=== PATIENT | male | born 1945 | race Caucasian/White ===

== ENCOUNTER → 2020-04-06 12:12 | Outpatient (BNVA) | payer MEDICARE, SELFPAY | PROVIDERS: Family Provider Family Medicine; Visit Provider Podiatrist Foot & Ankle Surgery | DX: M20.42 Other hammer toe(s) (acquired), left foot (principal) | CPT/HCPCS: 73630 ==

== ENCOUNTER 2020-04-06 15:51 | Outpatient (CLI) | payer MEDICARE, SELFPAY | END 2020-04-06 15:52 | disposition home or self-care (01) | LOC: SPT 15:52 | PROVIDERS: Family Provider Family Medicine; Visit Provider Podiatrist Foot & Ankle Surgery | DX: Z46.89 Encounter for fitting and adjustment of other specified devices (principal); L97.522 Non-pressure chronic ulcer of other part of left foot with fat layer exposed; M20.42 Other hammer toe(s) (acquired), left foot | CPT/HCPCS: 73630; 97760; L4361 ==

== ENCOUNTER → 2020-04-14 08:30 | Outpatient (BNVA) | payer MEDICARE, SELFPAY | PROVIDERS: Family Provider Family Medicine; Visit Provider Podiatrist Foot & Ankle Surgery | DX: L97.522 Non-pressure chronic ulcer of other part of left foot with fat layer exposed (principal); M86.9 Osteomyelitis, unspecified; M20.42 Other hammer toe(s) (acquired), left foot | CPT/HCPCS: 87070; 87075; 87205 ==

== ENCOUNTER → 2020-04-19 15:23 | Outpatient (BNVA) | payer MEDICARE, SELFPAY | PROVIDERS: Family Provider Family Medicine; Visit Provider Nurse Practitioner | DX: K29.70 Gastritis, unspecified, without bleeding (principal) | CPT/HCPCS: 81000 ==

== ENCOUNTER → 2020-04-30 09:32 | Outpatient (BNVA) | payer MEDICARE, SELFPAY | PROVIDERS: Family Provider Family Medicine; Visit Provider Podiatrist Foot & Ankle Surgery | DX: M86.9 Osteomyelitis, unspecified (principal); L97.522 Non-pressure chronic ulcer of other part of left foot with fat layer exposed; M20.42 Other hammer toe(s) (acquired), left foot | CPT/HCPCS: 73630 ==

== ENCOUNTER → 2020-06-23 14:28 | Outpatient (BNVA) | payer MEDICARE, SELFPAY | PROVIDERS: Family Provider Family Medicine; Visit Provider Podiatrist Foot & Ankle Surgery | DX: L97.522 Non-pressure chronic ulcer of other part of left foot with fat layer exposed (principal); M86.9 Osteomyelitis, unspecified | CPT/HCPCS: 73630; 87070; 87205 ==

== ENCOUNTER 2020-06-25 05:54 | Day surgery (SDC) | payer MEDICARE, SELFPAY ==
[2020-06-24 08:18] VITALS: BMI 22.4
[2020-06-25 06:07] VITALS: BP 123/84; PULSE 76; RESP 18; TEMP 36.2; O2SAT 97
[2020-06-25] MEDS: sodium chloride 0.9% 1,000 ML 30 ML IV (06:22)
--- NOTE | 2020-06-25 06:42 | ECG_ITS ---
[facility] Test Date: 2020-06-25 Pat Name: Jose Beal Department: Room: Gender: Male [employer]: : 1945 Requested By: Yara Maher Order Number: [id number] Pool MD: Cathie Steve M.D. Measurements Intervals [place] Rate: 63 P: 62 SC: 147 QRS: 45 QRSD: 101 T: 44 QT: 441 QTc: 453 Interpretive Statements SINUS RHYTHM No previous ECG available for comparison Electronically Signed On 06-25-2020 23:06:36 CDT by Cathie Steve M.D. [id number]
--- NOTE | 2020-06-25 06:45 | W.PM.OPSUD ---
Surgery/Procedure H&P Update DATE OF PROCEDURE: June 25, 2020 DATE H&P PERFORMED: 06/23/20 H&P UPDATE INFORMATION: I have reviewed H&P completed within last 30 days, I have examined patient prior to procedure, No changes to prior documentation and H&P is in [facility] EMR on date indicated PREOP DIAGNOSIS: Osteomyelitis left second toe distal phalanx PLANNED PROCEDURE: Operation Date: 06/25/20 07:00 Proposed Procedures p Amputation Toe/s left second toe 53879 M86.9(Left) - Dalton Gordon DPM
--- NOTE | 2020-06-25 06:47 | ANES.PREANE2 ---
Pre-Anesthetic Assessment Pre-Anesthetic Assessment: Height/Weight: Height 1.93 m Weight 83.461 kg Temp Pulse Resp BP Pulse Ox 97.2 F L 76 18 123/84 97 06/25/20 06:07 06/25/20 06:07 06/25/20 06:07 06/25/20 06:07 06/25/20 06:07 Preop Diagnosis: Osteomyelitis left second toe distal phalanx Proposed Procedure: Operation Date: 06/25/20 07:00 Proposed Procedures p Amputation Toe/s left second toe 90663 M86.9(Left) - Dalton Gordon DPM Familial anesthetic complications: NOne Last intake: Intake Last Liquid Date 06/24/20 Last Liquid Time 20:00 Last Solid Date 06/24/20 Last Solid Time 16:00 Social: Social History: No alcohol and No tobacco Exam: Pre-Anes Outpt Exam: alert, oriented x 3, clear to auscultation bilaterally and regular rate & rhythm Airway: Cervical ROM: WNL MP: 1 Additional comments: poor dentition Anesthetic Plan: ASA status: 1 Anesthesia: MAC Risk of > 500 ml blood loss (7ml/kg in children): No Meds/Allergies Current Medications: Current Medications Generic Name Dose Route Start Last Admin Trade Name Freq PRN Reason Stop Dose Admin Sodium Chloride 1,000 mls @ 30 ml s/hr 06/25/20 06:00 06/25/20 06:22 Sodium Chloride 0.9% IV 06/26/20 05:59 30 mls/hr .Q24H BRE Administration PFSH Anesthesia PFSH: Surgical History History of appendectomy History of cholecystectomy Social History Smoking and tobacco status: former smoker Alcohol intake: never Data Anesthesia Cardiac Studies: No Data to Display
--- NOTE | 2020-06-25 07:36 | XR_ITS ---
WS: [id number] LEFT FOOT: 3 VIEW(S) TECHNIQUE: AP, oblique and lateral. HISTORY: post op COMPARISON: 06/23/2020 No acute fracture or dislocation. Interval removal of the second toe. Postoperative changes in the soft tissues. There is very slight l oss of the normal cortex over the second metatarsal head as compared to the adjacent toes. No definit e osteomyelitis radiographically. Hammertoe deformities. No foreign bodies. XR/XR foot LT min 3V* [id number] IMPRESSION: 1. Post operative resection of the second toe. 2. Normal postoperative soft tissue changes. 3. Early changes of osteomyelitis involving the second metatarsal head are not excluded.
--- NOTE | 2020-06-25 07:36 | PM.OP ---
Operative Report Date of procedure: June 25, 2020 Pre-op Diagnosis: Osteomyelitis left second toe distal phalanx Post-op diagnosis: same Post-op Findings: Devitalized soft tissue and bone of the distal phalanx left second toe Procedure Done: Left second toe amputation through metatarsal phalangeal joint CPT code 83108 Implants: 3-0 Vicryl, 4-0 nylon Specimens removed/disposition: Left distal toe including distal phalanx sent to microbiology for Gram stain and culture. Remainder of left second toe sent to pathology for permanent Surgeon: Dalton Gordon D.P.M. Track Laying Equipment Operator: Michi Anesthesia: MAC Estimated blood loss: 5 mL Tourniquet time: 16 minutes IV fluids: None Urine output: None Complications: None Findings: Devitalized soft tissue and bone consistent with osteomyelitis distal phalanx left second toe Condition: stable Disposition: PACU Brief History: Patient is a pleasant 75-year-old male with idiopathic neuropathy and hammertoe deformity has history of multiple ulcerations with infections requiring antibiotics and wound care at his left second toe. He had abrupt onset of redness, swelling and drainage at his left second toe, on x-ray there is evidence of periosteal reaction and destructive changes at the distal tuft of the distal phalanx left second toe consistent with osteomyelitis. Recommended left second toe amputation risks include pain, bleeding, numbness, infection, ascending infection into the foot and leg, transfer pressure, he does have a hallux valgus that will likely be exacerbated with the second toe removed. Need for further antibiotics and surgical intervention. Patient is agreeable wishes to proceed. Procedure: Under mild sedation the patient was brought to the operating room and placed on operating table in supine position. A timeout was performed. Anesthesia was then administered by the anesthesia service. Local anesthesia was injected by myself 10 cc of 0.5% Marcaine plain and a left second ray block. Well-padded pneumatic tourniquet was applied to the left ankle. The left lower extremity was then scrubbed, prepped and draped utilizing normal aseptic technique. Left foot was elevated and the tourniquet was inflated to 250 mmHg. Attention was directed to the left second metatarsal phalangeal joint where a vertical fishmouth incision was carried out full-thickness with a #15 blade down to bone. The left second toe was disarticulated sharply through the metatarsal phalangeal joint and passed from the operative field. Distal phalanx and distal toe sent to microbiology for Gram stain and culture. Remaining second toe sent to pathology for permanent. Incision site was flushed with copious amounts of sterile saline solution. The second metatarsal head was viable had normal bone density and color. No purulent drainage encountered at this level.. Have healthy margins intraoperatively at this joint. All bleeders were ligated and cauterized as necessary. Extensor and flexor tendons transected at the most proximal margin. Incision once once again irrigated with saline solution. Deep tissues reapproximated utilizing 3-0 Vicryl. Skin reapproximated utilizing 4-0 nylon. Incision site was dressed with Adaptic, sterile 4 x 4's, Kerlix and Ajit wrap followed by postop shoe. Tourniquet was deflated and a prompt hyperemic response was noted to the remaining distal digits of the left foot. Patient tolerated the procedure well and was transferred to the PACU with vital signs stable and vascular status intact. Following a period of postoperative monitoring he will be discharged home is to rest and elevate his left foot may heel touch for transfers with a postop shoe. Continue with clindamycin and ciprofloxacin prescribed previously until the entire course is completed. Follow-up in clinic Monday next 07/01/2020 11 AM. He will contact Dr. Gordon with any postoperative questions or concerns.
[2020-06-25 07:37] VITALS: BP 94/55; PULSE 61; RESP 16; TEMP 36.1; O2SAT 94
[2020-06-25 07:52] VITALS: BP 100/59; PULSE 58; RESP 16; TEMP 36.6; O2SAT 96
--- NOTE | 2020-06-25 12:28 | ANE.PACU2 ---
Inpatient post-anesthesia follow up: Airway intact: Yes Vital signs: Temperature 98 F Pulse Rate 58 Respiratory Rate 16 Blood Pressure 100/59 Pulse Oximetry 96 Oxygen Delivery Me thod Room Air Oxygen Flow Rate Fraction of Inspir ed Oxygen Hydration adequate: Yes Nausea and vomiting: No Pain level: 1 Mental status: Baseline
== END 2020-06-25 08:35 | disposition home or self-care (01) ==
PROVIDERS: PCP Internal Medicine; Visit Provider Podiatrist Foot & Ankle Surgery
PROC: (CPT 28820; principal; 2020-06-25 07:00)
DX: M86.9 Osteomyelitis, unspecified (principal); M20.42 Other hammer toe(s) (acquired), left foot; G60.9 Hereditary and idiopathic neuropathy, unspecified; Z87.891 Personal history of nicotine dependence
CPT/HCPCS: 28820; 12345; 73630; 87070; 87077; 87106; 87176; 87186; 87205; 88305; 93005; J0690; J2704; J3010; J3490; J7030; L3260

== ENCOUNTER 2020-08-20 14:22 | Outpatient (CLI) | payer MEDICARE, SELFPAY ==
--- NOTE | 2020-08-20 14:34 | XR_ITS ---
WS: [id number] PROCEDURE: XR chest 2V* [id number] CLINICAL INFORMATION: COUGH COMPARISON: None. FINDINGS: Heart: Normal cardiac silhouette. Lungs: Mild chronic emphysematous changes. No acute pulmonary infiltrates. Bones: Normal visualized bony structures. Cholecystectomy clips. XR/XR chest 2V* [id number] IMPRESSION: No acute chest findings.
== END 2020-08-20 14:23 | disposition home or self-care (01) ==
LOC: RADWPI 14:28
PROVIDERS: Family Provider Internal Medicine; PCP Internal Medicine; Visit Provider Nurse Practitioner Family
DX: R05 Cough (principal)
CPT/HCPCS: 71046

== ENCOUNTER 2021-01-08 11:14 | Outpatient (CLI) | payer MEDICARE, SELFPAY ==
--- NOTE | 2021-01-08 11:20 | US_ITS ---
WS: [id number] RENAL ULTRASOUND URINARY BLADDER ULTRASOUND HISTORY: Nocturnal enuresis. COMPARISON: None available. TECHNIQUE: 2-D and color Doppler imaging of the kidney submitted. Right kidney: 10.7 cm x 5.3 cm x 5.3 cm. Normal echogenicity with no hydronephrosis or mass. Left kidney: 12.2 cm x 5.8 cm x 4.5 cm. Normal echogenicity with no hydronephrosis or mass. Aorta: Normal. Urinary Bladder: Markedly distended urinary bladder. The wall of the bladder is thickened and irregul ar. No mass identified. No increased vascularity. Prevoid volume is near 1000 mL. Post void volume 67 0 mL. Prostate gland is slightly enlarged. US/US renal BI with PV bladder IMPRESSION: 1. Negative renal ultrasound. No mass or obstruction. 2. Moderately distended urinary bladder with significant post void residual. 3. Diffuse bladder wall hypertrophy. Suspect outlet obstruction.
== END 2021-01-08 11:15 | disposition home or self-care (01) ==
LOC: RAD 11:17
PROVIDERS: PCP Internal Medicine; Visit Provider Nurse Practitioner Family
DX: N39.44 Nocturnal enuresis (principal)
CPT/HCPCS: 76770; 76857

== ENCOUNTER 2021-01-26 19:58 | Emergency (ER) | payer MEDICARE, SELFPAY ==
[2021-01-26 20:20] VITALS: BP 148/81; PULSE 104; RESP 20; TEMP 36.6; O2SAT 95; BMI 23.0
--- NOTE | 2021-01-26 21:31 | ED_ITS ---
HPI - Male Genitourinary General: Chief complaint: Urogenital-Male Stated complaint: blood in catheter Time Seen by Provider: 01/26/21 21:29 History of Present Illness: HPI Narrative: Patient is a 75-year-old male who comes to the ED with blood in his catheter and abdominal pain. Patient has a history of urinary retention and hypothyroidism. Patient saw the urology clinic today due to urinary retention and a Sargent catheter was placed today. Patient said that they had a little bit of issue placing the Sargent catheter and had to use different sized tubing due to his swollen prostate. They were able to place the Sargent catheter and patient reports there being a still little bit of blood in cath bag but he felt immediate relief when placed because his bladder was very full and distended. Couple hours after he left the clinic today he noticed that his Sargent catheter was draining very bloody urine. He is also complained of having some lower pelvic pain and discomfort. Associated symptoms: Reports hematuria; Deny dysuria, nausea or vomiting Review of Systems Const: Denies: fever(s), chills or fatigue Eyes: Denies: change in vision or eye discomfort ENMT: Denies: throat pain, odynophagia, nasal discharge or nasal congestion Card: Denies: chest pain, palpitations, edema, swelling of feet/ankles, dyspnea on exertion or orthopnea Resp: Denies: dyspnea, productive cough or non-productive cough GI: Reports: abdominal pain (lower pelvic pain-bladder); Denies: nausea, vomiting, diarrhea, constipation or hematochezia : Reports: hematuria; Denies: flank pain, difficulty urinating or dysuria Musc: Denies: neck pain, back pain or extremity swelling Skin/Breast: Denies: rash or new lesions Neuro: Denies: headache(s), numbness in extremities or weakness in extremities PFS ED PFSH: Medical History Urinary retention Surgical History History of appendectomy History of cholecystectomy Family History Other Alzheimer disease Social History Smoking and tobacco status: former smoker Alcohol intake: never Marital status: Physical Exam Narrative: EXAM NARRATIVE: Patient is a 75-year-old male appears nontoxic and in no acute distress or pain. Const: COMMON NORMALS: no acute distress, patient oriented x3, healthy appearing and alert GENERAL APPEARANCE: cooperative and comfortable HENMT: COMMON NORMALS: normocephalic HEAD & SCALP: normocephalic MOUTH: Normal oral and palatal mucosa present THROAT: posterior oropharynx normal and uvula midline Neck/C-Spine: COMMON NORMALS: supple GENERAL: Yes normal visual inspection Resp: COMMON NORMALS: normal respiratory effort, No retractions, No use of accessory muscles and clear to auscultation bilaterally AUSCULTATION: clear to auscultation bilaterally Cardio: COMMON NORMALS: regular rate, regular rhythm, S1 normal heart sound present, S2 normal heart sound present, No gallops present (Cardio), No clicks present (Cardio), No murmurs present (Cardio) and Peripheral pulses 2+ throughout RATE: regular rate RHYTHM: regular rhythm HEART SOUNDS: S1 normal heart sound present and S2 normal heart sound present PERIPHERAL PULSES: Peripheral pulses 2+ throughout GI: COMMON NORMALS: Normal to inspection, nondistended, normoactive bowel sounds present, Soft to palpation, non-tender and no masses PALPATION: Yes Soft to palpation and Yes Bladder palpation abnormal : COMMON NORMALS: Yes no CVA tenderness BLADDER/KIDNEY EXAM: Yes catheter in place Catheter type (Male): urethral, Yes no CVA tenderness and Yes Bladder palpation abnormal Bladder abnormal details: tender Back/Pelvis: COMMON NORMALS: no CVA tenderness Extremity: COMMON NORMALS: normal to inspection and no pedal edema Neuro: COMMON NORMALS: patient oriented x3 and moves all extremities SENSORIUM/ORIENTATION: Yes alert Skin: GENERAL SKIN EXAM: dry skin Course ED course: Nurse checked and flushed the Sargent catheter and it is working well and there is no obstruction present. Urine is flowing out appropriately. Vital Signs: Vital signs: Vital Signs Temperature 97.9 F 01/26/21 20:20 Pulse Rate 84 01/27/21 01:10 Respiratory Rate 18 01/27/21 01:10 Blood Pressure 108/64 01/27/21 01:10 Pulse Oximetry 96 01/27/21 01:10 MDM - Male MDM Narrative: Medical decision making narrative: Patient is a 75-year-old male who comes to the ED with Sargent catheter complications. Patient's is having blood in cath bag and bladder pain. Patient was seen at urologist today due to urinary retention and Sargent catheter was placed. Patient's Sargent catheter is in place while a nurse checked and flushed cath and it is working appropriately. Patient has some tenderness upon palpation over the bladder. No other acute findings on exam and patient appears nontoxic and in no acute distress or pain. Vitals stable. White blood cell count 14.6 and sodium 132 but rest of CBC and CMP were unremarkable. UA showed a lot of blood and trace bacteria and few white blood cells. CT of abdomen showed thickened bladder wall, kidneys were no rmal. Patient was given IV fluids, morphine, Zofran and 1 g of Rocephin. his symptoms improved. Patient diagnosed with Sargent catheter complications and discharged home with a prescription of Keflex. Patient was told to follow-up with urologist tomorrow. Return to ED precautions given. Patient was told to rest for the next couple days and did not pull or tug on Sargent catheter line. Patient understood and agreed with plan. Lab Data: Attestation: I reviewed the patient's lab results. Labs: Lab Results 01/26/21 01/26/21 01/26/21 Range/Units 22:02 22:02 22:38 WBC 14.6 H (4.0-10.0) 10^3/ uL RBC 5.07 (4.1-5.3) 10^6/u L Hgb 15.1 (11.7-16.6) g/dL Hct 46.1 (42.0-52.0) % MCV 90.9 (80-94) fL MCH 29.8 (28.0-34.0) pg MCHC 32.8 (30.0-36.0) g/dL RDW 14.0 (12.1-15.1) % Plt Count 291 (130-400) 10^3/c mm MPV 10.6 H (7.4-10.4) fL Neut % (Auto) 68.9 % Lymph % (Auto) 18.4 % [place] % (Auto) 8.3 % Eos % (Auto) 3.5 % Baso % (Auto) 0.6 % Neut # (Auto) 10.07 H (1.8-7.7) 10^3/u L Lymph # (Auto) 2.7 (0.8-4.8) 10^3/u L [place] # (Auto) 1.2 H (0.2-0.9) 10^3/u L Eos # (Auto) 0.5 (0.0-0.8) 10^3/u L Baso # (Auto) 0.1 (0.0-0.1) 10^3/u L Nucleated RBC % (a uto) 0 % Nucleated RBCs # 0.0 /100WBC Sodium 132 L (136-145) mmol/L Potassium 4.4 (3.5-5.1) mmol/L Chloride 99 (98-107) mmol/L Carbon Dioxide 28 (22-29) mmol/L Anion Gap 9.4 (5-19) BUN 13 (8-23) mg/dL Creatinine 0.8 (0.7-1.2) mg/dL GFR Calculation Not Reportable Glucose 104 (65-115) mg/dL Calculated Osmolal ity 274 L (285-295) mOsm/k g Calcium 8.9 (8.5-10.5) mg/dL Total Bilirubin 0.6 (0.15-1.2) mg/dL AST 17 (0-40) U/L ALT 14 (0-41) U/L Alkaline Phosphata se 63 (40-130) IU/L Total Protein 7.7 (6.6-8.7) g/dL Albumin 4.0 (3.5-5.2) g/dL Globulin 3.7 (1.3-4.6) g/dL Lipase 18 (13-60) U/L Urine Color Red (Yellow) Urine Appearance Cloudy (CLEAR) Urine pH 7 (5-7) Ur Specific Gravit y 1.010 (1.005-1.030) Urine Protein 3+ H (Negative) Urine Glucose (UA) Trace H (Normal) Urine Ketones Negative (Negative) Urine Blood 3+ H (Negative) Urine Nitrate Negative (Negative) Urine Bilirubin Neg (Negative) Urine Urobilinogen Norm (Negative) mg/dL Ur Leukocyte Jacqui ase Negative (Negative) Urine RBC Too numerous to c nt H (0-2) /hpf Urine WBC 0-4 H (0-5) /hpf Ur Squamous Epith Cells 0-4 H (0-5) /hpf Amorphous Sediment Not Reportable Urine Bacteria Trace (NONE) /hpf Imaging Data: CT Abd/Pel: Attestation: I personally reviewed and interpreted this imaging study as follows: Radiologist's impression: [employer] [address] [address] Scan Report Signed Patient: Jose Beal Unit #: [id number] : 1945 Age/Sex: 75 / M ADM Date: 01/26/21 Loc: ER Room/Bed: Attending Dr: Ordering Provider/Ordering MD: Evelio Mata Date of Service: 01/26/21 Procedure(s): CT abdomen pelvis w con* [id number] Accession Number(s): [id number] Report Number: [id number] PROCEDURE INFORMATION: Exam: CT Abdomen And Pelvis With Contrast Exam date and time: 01/26/2021 11:12 PM Age: 75 years old Clinical indication: Prior surgery; Surgery type: Gb. Appy. ; Patient HX: Gross hematuria with pelvic pain. ; Additional info: Blood draining from sargent cath and bladder pain TECHNIQUE: Imaging protocol: Computed tomography of the abdomen and pelvis with contrast. Radiation optimization: All CT scans at this facility use at least one of these dose optimization techniques: automated exposure control; mA and/or kV adjustment per patient size (includes targeted exams where dose is matched to clinical indication); or iterative reconstruction. Contrast material: OMNI 300; Contrast volume: 95 ml; Contrast route: INTRAVENOUS (IV); COMPARISON: No relevant prior studies available. RADIATION DOSE METRICS: Total DLP (mGy-cm): 1719.01 FINDINGS: Lungs: Mild emphysema. Scattered linear bands in the lower lobes may represent scarring or atelectasis. Liver: Normal. No mass. Gallbladder and bile ducts: Cholecystectomy. Mild ectasia of biliary system. Pancreas: Fatty replacement of pancreas. Spleen: Normal. No splenomegaly. Adrenal glands: Normal. No mass. Kidneys and ureters: Normal. No hydronephrosis. Stomach and bowel: Scattered diverticulosis coli. No focal bowel wall mass. No focal bowel wall inflammation. Negative for bowel obstruction. Negative for bowel perforation. Appendix: No evidence of appendicitis. Intraperitoneal space: Unremarkable. No free air. No significant fluid collection. Vasculature: Unremarkable. No abdominal aortic aneurysm. Lymph nodes: Unremarkable. No enlarged lymph nodes. Urinary bladder: Extensive circumferential bladder wall thickening. Bladder decompressed with Sargent catheter in place. There is a focus of gas within the superior margin of the bladder wall. This is nonspecific. Reproductive: Moderate prostate gland enlargement. Bones/joints: Unremarkable. No acute fracture. The lumbar spine demonstrates moderate discogenic and apophyseal joint degenerative changes at multiple levels. Mild leftward convex scoliosis. No fractures. No aggressive bone lesion. Soft tissues: Unremarkable. CT/CT abdomen pelvis w con* [id number] IMPRESSION: 1. Extensively thickened bladder wall circumferentially. The decompressed bladder is at least 2.5 cm in thickness. The wall is diffusely heterogeneous. Small focus of gas in the wall of the bladder is nonspecific. 2. Diagnostic considerations include in infiltrative, invasive mass, chronic infection, sequela of chronic bladder outlet obstruction, or some combination of these diagnoses. 3. No upper collecting system tract abnormality. Radiation Dose CTDIVOL = (mGy): DLP = 1719.01 (mGy-cm) Dictated By: Tay Kellogg Signed By: Tay Kellogg Signed Date/Time: 01/26/212344 DD/ 43 Discharge Plan Discharge Patient Disposition: Home Clinical Impression: Complication of Sargent catheter Qualifiers: Encounter type: initial encounter Qualified Code(s): T83.9XXA - Unspecified complication of genitourinary prosthetic device, implant and graft, initial encounter Condition: Stable Prescriptions: New cephalexin 500 mg capsule 500 mg PO BID 7 Days Qty: 14 RF: 0 No Action aspirin 81 mg tablet,delayed release (DR/EC) 81 mg PO DAILY RF: 0 levothyroxine 50 mcg capsule 50 mcg PO DAILY RF: 0 tamsulosin 0.4 mg capsule 0.4 mg PO .at bedtime Qty: 30 RF: 12 imipramine HCl 25 mg tablet 25 mg PO .HS RF: 0 epinephrine [EpiPen] 0.3 mg/0.3 mL auto-injector 0.3 mg IM Q10M RF: 0 Discharge Orders: Discharge ED (Routine); Ordered 01/27/21 Ordered By: Evelio Mata Referrals: Amy Mojica MD [Primary Care Provider] - Discharge Diet: Regular Discharge Activity: Increase activity as tolerated Patient Instructions: Sargent Catheter Care, Sargent Catheter Placement and Care (ED), Urinary Leg Bag (GEN) Activity Restrictions/Additional Instructions: Follow-up with medical provider as directed. Follow-up with urology office tomorrow. Take medications as prescribed. Drink plenty of fluids and stay hydrated. Return to the ER or your medical provider if condition worsens. Please read and understand discharge instructions. If any questions, please ask. Coding Level of Care Code ED Internal Communications Manager for Chg Fwd Exam Comprehensive
[2021-01-26 22:11] VITALS: RESP 18; O2SAT 96
[2021-01-26] MEDS: morphine 4 mg/mL SDV 1 mL 2 MG IVP (22:11)
[2021-01-26] MEDS: ondansetron 2 mg/ML SDV 2 mL 4 MG IVP (22:11)
[2021-01-26 22:12] VITALS: BP 120/83; PULSE 94; RESP 18; O2SAT 94
[2021-01-26 22:12] LABS: Basophils # 0.1 10^3/uL (0.0-0.1); Basophils % 0.6 %; Eosinophils # 0.5 10^3/uL (0.0-0.8); Eosinophils % 3.5 %; Hematocrit 46.1 % (42.0-52.0); Hemoglobin 15.1 g/dL (11.7-16.6); Lymphocytes # 2.7 10^3/uL (0.8-4.8); Lymphocytes % 18.4 %; Mean Corpuscular HGB Conc 32.8 g/dL (30.0-36.0); Mean Corpuscular Hemoglobin 29.8 pg (28.0-34.0); Mean Corpuscular Volume 90.9 fL (80-94); Mean Platelet Volume 10.6 fL (7.4-10.4); Monocytes # 1.2 10^3/uL (0.2-0.9); Monocytes % 8.3 %; Neutrophils # 10.07 10^3/uL (1.8-7.7); Neutrophils % 68.9 %; Nucleated Red Blood Cells % 0 %; Platelet Count 291 10^3/cmm (130-400); Red Blood Count 5.07 10^6/uL (4.1-5.3); White Blood Count 14.6 10^3/uL (4.0-10.0)
[2021-01-26 22:27] LABS: Blood Urea Nitrogen 13 mg/dL (8-23); Calcium 8.9 mg/dL (8.5-10.5); Carbon Dioxide 28 mmol/L (22-29); Globulin 3.7 g/dL (1.3-4.6); Glucose 104 mg/dL (65-115); Lipase 18 U/L (13-60); Total Bilirubin 0.6 mg/dL (0.15-1.2); Total Protein 7.7 g/dL (6.6-8.7)
--- NOTE | 2021-01-26 22:30 | PC.NURSE ---
Pt catheter irrigated with 300 cc sterile water until output was light pink. Pt stated pain was received to a 4 after procedure. No clots noted from bladder irrigation, blots noted in sargent bag.
[2021-01-26 22:53] LABS: Bilirubin Urine Neg (Negative); Blood Urine 3+ (Negative); Glucose Urine UA Trace (Normal); Ketones Urine Negative (Negative); Leukocyte Esterase Urine Negative (Negative); Nitrate Urine Negative (Negative); Protein Urine 3+ (Negative); RBC Urine TOO NUMEROUS TO CNT /hpf (0-2); Urine Appearance Cloudy (CLEAR); Urine Color Red (Yellow); Urobilinogen Urine Norm (Negative); WBC Urine 0-4 /hpf (0-5); pH Urine 7 (5-7)
[2021-01-26 22:54] LABS: Add Urine Culture? No; Bacteria Urine TRACE /hpf; Squamous Epithelial Cell Urine 0-4 /hpf (0-5)
--- NOTE | 2021-01-26 23:02 | CTR_ITS ---
PROCEDURE INFORMATION: Exam: CT Abdomen And Pelvis With Contrast Exam date and time: 01/26/2021 11:12 PM Age: 75 years old Clinical indication: Prior surgery; Surgery type: Gb. Appy. ; Patient HX: Gross hematuria with pelvic pain. ; Additional info: Blood draining from sargent cath and bladder pain TECHNIQUE: Imaging protocol: Computed tomography of the abdomen and pelvis with contrast. Radiation optimization: All CT scans at this facility use at least one of these dose optimization techniques: automated exposure control; mA and/or kV adjustment per patient size (includes targeted exams where dose is matched to clinical indication); or iterative reconstruction. Contrast material: OMNI 300; Contrast volume: 95 ml; Contrast route: INTRAVENOUS (IV); COMPARISON: No relevant prior studies available. RADIATION DOSE METRICS: Total DLP (mGy-cm): 1719.01 FINDINGS: Lungs: Mild emphysema. Scattered linear bands in the lower lobes may represent scarring or atelectasis. Liver: Normal. No mass. Gallbladder and bile ducts: Cholecystectomy. Mild ectasia of biliary system. Pancreas: Fatty replacement of pancreas. Spleen: Normal. No splenomegaly. Adrenal glands: Normal. No mass. Kidneys and ureters: Normal. No hydronephrosis. Stomach and bowel: Scattered diverticulosis coli. No focal bowel wall mass. No focal bowel wall inflammation. Negative for bowel obstruction. Negative for bowel perforation. Appendix: No evidence of appendicitis. Intraperitoneal space: Unremarkable. No free air. No significant fluid collection. Vasculature: Unremarkable. No abdominal aortic aneurysm. Lymph nodes: Unremarkable. No enlarged lymph nodes. Urinary bladder: Extensive circumferential bladder wall thickening. Bladder decompressed with Sargent catheter in place. There is a focus of gas within the superior margin of the bladder wall. This is nonspecific. Reproductive: Moderate prostate gland enlargement. Bones/joints: Unremarkable. No acute fracture. The lumbar spine demonstrates moderate discogenic and apophyseal joint degenerative changes at multiple levels. Mild leftward convex scoliosis. No fractures. No aggressive bone lesion. Soft tissues: Unremarkable. CT/CT abdomen pelvis w con* [id number] IMPRESSION: 1. Extensively thickened bladder wall circumferentially. The decompressed bladder is at least 2.5 cm in thickness. The wall is diffusely heterogeneous. Small focus of gas in the wall of the bladder is nonspecific. 2. Diagnostic considerations include in infiltrative, invasive mass, chronic infection, sequela of chronic bladder outlet obstruction, or some combination of these diagnoses. 3. No upper collecting system tract abnormality. Radiation Dose CTDIVOL = (mGy): DLP = 1719.01 (mGy-cm)
[2021-01-26 23:07] LABS: Alanine Aminotransferase 14 U/L (0-41); Alkaline Phosphatase 63 IU/L (40-130); Anion Gap 9.4 (5-19); Aspartate Amino Transferase 17 U/L (0-40); Chloride 99 mmol/L (98-107); Osmolality Calculated 274 mOsm/kg (285-295); Potassium 4.4 mmol/L (3.5-5.1); Sodium 132 mmol/L (136-145)
[2021-01-26] MEDS: iohexol 300 mg/mL 100 mL Btl IV (23:17)
[2021-01-26] MEDS: sodium chloride 0.9% 500 ML 999 ML IV (23:46)
[2021-01-27] MEDS: cefTRIAXone 1,000 MG in sodium chloride 0.9% (plus) 50 ML 100 MG IV (00:28)
[2021-01-27 00:35] VITALS: BP 110/68; PULSE 83; RESP 18; O2SAT 94
[2021-01-27 01:10] VITALS: BP 108/64; PULSE 84; RESP 18; O2SAT 96
== END 2021-01-27 01:12 | disposition home or self-care (01) ==
PROVIDERS: Emergency Provider Physician Assistant; PCP Internal Medicine
DX: T83.9XXA Unspecified complication of genitourinary prosthetic device, implant and graft, initial encounter (principal); Z79.82 Long term (current) use of aspirin; Z87.891 Personal history of nicotine dependence
CPT/HCPCS: 74177; 80053; 81001; 81003; 83690; 85025; 96365; 96375; 99283; J0696; J2270; J2405; J7040; Q9967

== ENCOUNTER → 2021-03-30 09:46 | Outpatient (BNVA) | payer MEDICARE, SELFPAY | PROVIDERS: PCP Internal Medicine; Visit Provider Urology | DX: N40.1 Benign prostatic hyperplasia with lower urinary tract symptoms (principal); R33.9 Retention of urine, unspecified; R82.81 Pyuria | CPT/HCPCS: 81003; 87086 ==

== ENCOUNTER → 2021-10-04 08:53 | Outpatient (BNVA) | payer MEDICARE, SELFPAY | PROVIDERS: PCP Internal Medicine; Visit Provider Nurse Practitioner Family | DX: N40.1 Benign prostatic hyperplasia with lower urinary tract symptoms (principal) | CPT/HCPCS: 81003 ==

== ENCOUNTER → 2022-09-08 08:47 | Outpatient (BNVA) | payer MEDICARE, SELFPAY | PROVIDERS: PCP Internal Medicine; Visit Provider Urology | DX: N40.1 Benign prostatic hyperplasia with lower urinary tract symptoms (principal); N52.9 Male erectile dysfunction, unspecified | CPT/HCPCS: 51741; 51798; 81003; 99213 ==

== ENCOUNTER → 2023-02-01 11:14 | Outpatient (BNVA) | payer MEDICARE, SELFPAY | PROVIDERS: PCP Internal Medicine; Referring Provider Family Medicine; Visit Provider Podiatrist Foot & Ankle Surgery | DX: L97.522 Non-pressure chronic ulcer of other part of left foot with fat layer exposed (principal); G60.9 Hereditary and idiopathic neuropathy, unspecified; Z89.422 Acquired absence of other left toe(s) | CPT/HCPCS: 11042 ==

== ENCOUNTER → 2023-02-15 14:14 | Outpatient (BNVA) | payer MEDICARE, SELFPAY | PROVIDERS: PCP Internal Medicine; Visit Provider Podiatrist Foot & Ankle Surgery | DX: M20.42 Other hammer toe(s) (acquired), left foot (principal); G60.9 Hereditary and idiopathic neuropathy, unspecified; L97.522 Non-pressure chronic ulcer of other part of left foot with fat layer exposed | CPT/HCPCS: 99213 ==

== ENCOUNTER → 2023-03-08 10:35 | Outpatient (BNVA) | payer MEDICARE, SELFPAY | PROVIDERS: PCP Internal Medicine; Visit Provider Podiatrist Foot & Ankle Surgery | DX: G60.9 Hereditary and idiopathic neuropathy, unspecified (principal); Z89.422 Acquired absence of other left toe(s) | CPT/HCPCS: 99213 ==

== ENCOUNTER 2023-05-22 11:08 | Outpatient (CLI) | payer MEDICARE, SELFPAY ==
--- NOTE | 2023-05-22 11:25 | XR_ITS ---
WS: [id number] Exam: XR chest 2V* [id number] Date/Time of Exam: 05/22/2023 11:29 AM Reason For Exam: DYSPNEA ON EXERTION Comparison 08/20/2020. Findings: The lungs are clear and fully expanded. Costophrenic angles are sharp. No infiltrates. Bronchovascula r relief appears normal. Cardiac silhouette is unremarkable. Bony elements are intact. XR/XR chest 2V* [id number] IMPRESSION: Unremarkable chest radiograph.
== END 2023-05-22 11:09 | disposition home or self-care (01) ==
PROVIDERS: PCP Internal Medicine; Visit Provider Family Medicine
DX: R06.09 Other forms of dyspnea (principal)
CPT/HCPCS: 71046

== ENCOUNTER 2023-06-01 11:08 | Outpatient (CLI) | payer MEDICARE, SELFPAY ==
[2023-06-01 10:25] VITALS: PULSE 79
[2023-06-01 11:20] VITALS: PULSE 75; RESP 18; O2SAT 97
== END 2023-06-01 11:09 | disposition home or self-care (01) ==
PROVIDERS: PCP Internal Medicine; Visit Provider Family Medicine
DX: R06.09 Other forms of dyspnea (principal)
CPT/HCPCS: 94060; J7613

== ENCOUNTER → 2023-07-11 13:29 | Outpatient (BNVA) | payer MEDICARE, SELFPAY | PROVIDERS: PCP Internal Medicine; Visit Provider Podiatrist Foot & Ankle Surgery | DX: G60.9 Hereditary and idiopathic neuropathy, unspecified (principal); Z89.422 Acquired absence of other left toe(s) | CPT/HCPCS: 99213 ==

== ENCOUNTER 2023-09-07 15:19 | Outpatient (CLI) | payer MEDICARE, SELFPAY ==
--- NOTE | 2023-09-07 15:25 | XRR_ITS ---
PROCEDURE INFORMATION: Exam: XR Abdomen Exam date and time: 09/07/2023 3:36 PM Age: 78 years old Clinical indication: Bloating; Prior surgery; Surgery date: 6+ months; Surgery type: Gb, appendix; Additional info: Bloating and cramps TECHNIQUE: Imaging protocol: Radiologic exam of the abdomen. Views: 2 Views. Upright and supine views. COMPARISON: CT abdomen pelvis w con* [id number] 01/26/2021 11:34 PM FINDINGS: Gastrointestinal tract: Large amount of stool in the colon. Intraperitoneal space: No free air or obstruction. Organs: Previous cholecystectomy. Bones/joints: [place] leftward mid lumbar curvature. XR/XR abdomen min 2V [id number] IMPRESSION: No acute findings.
== END 2023-09-07 15:20 | disposition home or self-care (01) ==
PROVIDERS: PCP Internal Medicine; Visit Provider Nurse Practitioner Family
DX: R14.0 Abdominal distension (gaseous) (principal); R10.9 Unspecified abdominal pain
CPT/HCPCS: 74019

== ENCOUNTER → 2023-10-03 11:04 | Outpatient (BNVA) | payer MEDICARE, SELFPAY | PROVIDERS: PCP Internal Medicine; Visit Provider Podiatrist Foot & Ankle Surgery | DX: G60.9 Hereditary and idiopathic neuropathy, unspecified (principal); Z89.422 Acquired absence of other left toe(s) | CPT/HCPCS: 99213 ==

== ENCOUNTER 2024-03-25 13:42 | Outpatient (CLI) | payer MEDICARE, SELFPAY ==
--- NOTE | 2024-03-25 13:48 | XRR_ITS ---
PROCEDURE INFORMATION: Exam: XR Left Foot Exam date and time: 03/25/2024 1:53 PM Age: 78 years old Clinical indication: Condition or disease; Other: Foot ulcer, prior surgery; Surgery date: 6+ months; Surgery type: Toe amputation; Additional info: Foot ulcer, left TECHNIQUE: Imaging protocol: Radiologic exam of the left foot. Views: 3 or more views. COMPARISON: CR XR foot LT min 3V* [id number] 06/25/2020 8:10 AM FINDINGS: Bones/joints: Prior amputation of the 2nd toe. Moderate hallux valgus and degeneration of the 1st MTP joint. No evidence of acute osseous erosion, fracture or subluxation. Tarsometatarsal alignment is maintained. 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 Soft tissues: Soft tissue ulceration of the medial forefoot in the region of the 1st MTP joint. XR/XR foot LT min 3V* [id number] IMPRESSION: 1. Soft tissue ulceration of the medial forefoot without evidence of acute osseous erosion, fracture or subluxation. If there is ongoing clinical concern for infection, consider correlation with MRI.
== END 2024-03-25 13:43 | disposition home or self-care (01) ==
LOC: RAD 13:45
PROVIDERS: PCP Family Medicine; Visit Provider Family Medicine
DX: L97.529 Non-pressure chronic ulcer of other part of left foot with unspecified severity (principal); Z89.422 Acquired absence of other left toe(s); M20.12 Hallux valgus (acquired), left foot; M19.072 Primary osteoarthritis, left ankle and foot
CPT/HCPCS: 73630

== ENCOUNTER → 2024-03-26 08:13 | Outpatient (BNVA) | payer MEDICARE, SELFPAY | PROVIDERS: PCP Family Medicine; Visit Provider Podiatrist Foot & Ankle Surgery | DX: L97.524 Non-pressure chronic ulcer of other part of left foot with necrosis of bone (principal); G60.9 Hereditary and idiopathic neuropathy, unspecified; Z89.422 Acquired absence of other left toe(s) | CPT/HCPCS: 87070; 87075; 87077; 87186; 87205 ==

== ENCOUNTER 2024-03-26 09:36 | Outpatient (CLI) | payer MEDICARE, SELFPAY | END 2024-03-26 09:37 | disposition home or self-care (01) | LOC: SPT 09:36 | PROVIDERS: PCP Family Medicine; Visit Provider Podiatrist Foot & Ankle Surgery | DX: Z46.89 Encounter for fitting and adjustment of other specified devices (principal); L97.524 Non-pressure chronic ulcer of other part of left foot with necrosis of bone; G60.9 Hereditary and idiopathic neuropathy, unspecified | CPT/HCPCS: 11044; 97760; L4361 ==

== ENCOUNTER 2024-03-27 10:16 | Day surgery (SDC) | payer MEDICARE, SELFPAY ==
[2024-03-27] VITALS (7 sets, daily range): BP systolic 91–122; BP diastolic 48–80; PULSE 74–82; RESP 14–17; TEMP 36.2–36.7; O2SAT 94–96; BMI 21.3
[2024-03-27] MEDS: sodium chloride 0.9% 1,000 ML 30 ML IV (11:00)
--- NOTE | 2024-03-27 11:37 | ANES.PREANE2 ---
Pre-Anesthetic Assessment Height/Weight: Height 1.96 m Weight 81.647 kg Temp Pulse Resp BP Pulse Ox O2 Del Method 98.0 F 82 16 108/80 95 Room Air 03/27/24 10:45 03/27/24 10:45 03/27/24 10:45 03/27/24 10:45 03/27/24 10:45 03/27/24 10:45 Preop Diagnosis: Acute osteomyelitis left foot Operation Date: 03/27/24 12:10 Proposed Procedures p Amputation Toe/s/ left great toe amputation(Left) - Dalton Gordon DPM s incision bone cortex left first metatarsal(Left) - Dalton Gordon DPM Familial anesthetic complications: Noen Was Beta Ellen taken within 24 hours: N/A Was Clonidine taken within 24 hours: N/A Last intake: Intake Last Liquid Date 03/26/24 Last Liquid Time 20:00 Last Solid Date 03/26/24 Last Solid Time 16:30 Social No alcohol and No tobacco Exam alert, oriented x 3, clear to auscultation bilaterally and regular rate & rhythm Airway Mallampati: Class I Dentition: chipped Metabolic Diabetes Mellitus and Thyroid Disease Anesthetic Plan ASA status: 3 Anesthesia: MAC Risk of > 500 ml blood loss (7ml/kg in children): No Medications/Allergies Home Medications Medication Instructions Recorded Confirmed Last Taken Type aspirin 81 mg tablet,delayed 81 mg PO DAILY 04/19/20 03/26/24 03/26/24 08:00 History release levothyroxine 50 mcg capsule 50 mcg PO DAILY 01/26/21 03/26/24 03/26/24 08:00 History tadalafil 20 mg tablet 20 mg PO DAILY PRN sexual activity 10/04/21 03/26/24 Unknown Rx #30 tabs tamsulosin 0.4 mg capsule 0.4 mg PO .at bedtime #30 caps 03/01/22 03/26/24 03/25/24 20:00 Rx diphenhydramine HCl 25 mg capsule 25 mg PO TID PRN Allergic Reaction 09/08/22 03/26/24 Unknown History (Benadryl) mupirocin 2 % topical ointment 1 applic topical BID 2 weeks #22 02/01/23 03/26/24 Unknown Rx grams nystatin 100,000 unit/gram topical 1 applic topical DAILY #30 grams 03/18/24 03/26/24 03/26/24 08:00 Rx cream CAM BOOT to left #1 ea 03/26/24 03/26/24 Unknown Rx doxycycline hyclate 100 mg capsule 100 mg PO BID 10 days #20 caps 03/26/24 03/27/24 03/26/24 20:00 Rx prednisone 5 mg tablet 7 mg PO 1XD 03/26/24 03/26/24 03/26/24 08:00 History Allergies Allergy/AdvReac Type Severity Reaction Status Date / Time bee venom protein (honey bee) Allergy Severe ALGY-Difficulty Verified 03/27/24 10:37 Swallowing Current Medications Generic Name Dose Route Start Last Admin Trade Name Freq PRN Reason Stop Dose Admin Sodium Chloride 1,000 mls @ 30 mls/hr 03/27/24 10:30 03/27/24 11:00 Sodium Chloride 0.9% IV 03/28/24 10:29 30 mls/hr .Q24H BRE Administration PFSH Anesthesia Medical History Erectile dysfunction BPH loc w urin obs/LUTS Urinary retention Surgical History History of appendectomy History of cholecystectomy Family History Mother , at age 89 Dementia Father , at age 89 Alzheimer disease Social History Smoking and tobacco/nicotine status: former use of tobacco/nicotine Alcohol intake: never Substance/Drug Use: never Marital status: Current occupational status: retired Data Anesthesia Cardiac Studies: No Data to Display
--- NOTE | 2024-03-27 12:02 | W.PM.OPSUD ---
Surgery/Procedure H&P Update DATE OF PROCEDURE: March 27, 2024 DATE H&P PERFORMED: 03/26/24 H&P UPDATE INFORMATION: I have reviewed H&P completed within last 30 days, I have examined patient prior to procedure, No changes to prior documentation and H&P is in [facility] on date indicated CHANGES TO PREVIOUS DOCUMENTATION: None PREOP DIAGNOSIS: Acute osteomyelitis left foot PLANNED PROCEDURE: Operation Date: 03/27/24 12:10 Proposed Procedures p Amputation Toe/s/ left great toe amputation(Left) - Dalton Gordon DPM s incision bone cortex left first metatarsal(Left) - Dalton Gordon DPM
[2024-03-27] MEDS: ceFAZolin 2,000 MG in sodium chloride 0.9% (plus) 50 ML 100 MG IV (12:04)
[2024-03-27] MEDS: lidocaine 2% INJ 20 mL 15 ML INJECTION (12:37)
[2024-03-27] MEDS: BUPivacaine 0.5% INJ 30 mL 15 ML INJECTION (12:38)
--- NOTE | 2024-03-27 12:42 | W.PM.BPON ---
Date of Procedure: 01/19/24 Surgeon: Dalton Gordon DPM [employer]asification Plant Operator(s): Michael Procedure(s) performed: Left great toe amputation. Incision of bone cortex left foot. Findings of the procedure(s): Osteomyelitis with devitalized bone left great toe and head of first metatarsal left foot Estimated blood loss: 10 mL Specimen(s) removed: Left great toe and first metatarsal sent to pathology. Cultures were taken yesterday 03/26/2024 prior to initiation of antibiotic therapy. Post-operative diagnosis: Osteomyelitis and cellulitis left foot No complications with anesthesia or surgery
--- NOTE | 2024-03-27 12:44 | PM.OP ---
Operative Report Date of procedure: March 27, 2024 Pre-op diagnosis: Acute osteomyelitis left foot. ICD-10 code L97.524 Post-op diagnosis: Acute osteomyelitis left foot. ICD-10 code L97.524 Procedure done: 1) left great toe amputation. CPT code 48891. 2) incision bone cortex left first metatarsal. CPT code 93468 Implants: 3-0 Vicryl, 3-0 nylon Specimens removed/disposition: Bone left first metatarsal sent to microbiology for Gram stain, culture and sensitivity Pathology: Left great toe sent to pathology for permanent Surgeon: Dalton Gordon DPM Paleobotanist: Ramin Estimated blood loss: 10 mL 18 minutes Complications: No complications Brief History: 78-year-old male with idiopathic peripheral neuropathy presents with acute osteomyelitis of the left first metatarsal head and proximal phalanx base, wound probes directly to bone. Denies any constitutional symptoms, denies fevers and chills, nausea or vomiting. Doxycycline 200 mg twice daily prescribed to [facility] pharmacy for 10 days, this was based off of previous second toe wound on file Offload with cam demi Discussed hospital admission versus outpatient surgery patient would like to proceed with outpatient surgery if this is an option. Surgical message sent will be scheduled for tomorrow at noon 03/27/2024 for left great toe amputation and incision of bone cortex left first metatarsal, should patient have increased redness, pain or fevers or chills he is to present to emergency department for hospital admission. Procedure: Under mild sedation patient was brought to the operating room and remained on the gurney in supine position. A timeout was performed. Anesthesia was then administered by the anesthesia service. Local anesthesia injected by myself consisting of 30 cc of one-to-one mixture 1% lidocaine and 0.5 sent Marcaine plain and a left male block fashion. Well-padded pneumatic tourniquet was applied to the left ankle. Left lower extremity was scrubbed, prepped and draped utilizing normal aseptic technique. No Esmarch bandage was utilized for attenuation secondary to infection. Left foot was elevated and tourniquet was inflated to 250 mmHg. Attention was directed to the left great toe where the wound probing directly to bone at the proximal phalanx base was appreciated with surrounding erythema and purulent drainage. Circumferentially an incision was performed this was a fishmouth incision encompassing the first metatarsal phalangeal joint was carried out and to the left great toe was disarticulated through the first metatarsal phalangeal joint sharply with a #15 blade and passed from the operative field, left great toe was sent to pathology for permanent. Attention was then directed to the left first metatarsal which is noted to have devitalized bone which was incised through cortex until healthy margins were appreciated. Surgical debridement and incision of bone cortex was carried out sharply with a 15 blade and rongeur as well as a sagittal saw. Incision was then irrigated with copious amounts of sterile saline solution. Clean margins visualized intraoperatively at the left foot after copious amounts of sterile saline solution irrigation the wound was closed in a layered fashion with deep fascia and subcutaneous tissue reapproximated with 3-0 Vicryl and skin with 3-0 nylon. Dressings consisting of Adaptic, sterile 4 x 4's, Kerlix and Ajit wrap were then applied followed by application of a cam boot to the left lower extremity. Tourniquet was deflated and a hyperemic response is noted to the remaining digits of the left foot. Patient tolerated the procedure and anesthesia well and was transferred to the PACU with vital signs stable and vascular status intact. Following a period of postoperative monitoring he will be discharged home is to remain nonweightbearing heel touch only for transfers with cam boot. Will be following up in podiatry clinic outpatient moving forward.
--- NOTE | 2024-03-27 13:35 | ANE.PACU2 ---
Inpatient post-anesthesia follow up: Airway intact: Yes Vital signs: Temperature 97.2 F Pulse Rate 80 Respiratory Rate 17 Blood Pressure 122/72 Pulse Oximetry 96 Oxygen Delivery Me thod Room Air Oxygen Flow Rate Fraction of Inspir ed Oxygen Hydration adequate: Yes Nausea and vomiting: No Pain level: 1 Mental status: Baseline
== END 2024-03-27 13:34 | disposition home or self-care (01) ==
PROVIDERS: PCP Family Medicine; Visit Provider Podiatrist Foot & Ankle Surgery
PROC: (CPT 28005; principal; 2024-03-27 12:00)
PROC: (CPT 28005; 2024-03-27 12:00)
DX: L97.524 Non-pressure chronic ulcer of other part of left foot with necrosis of bone (principal); E11.9 Type 2 diabetes mellitus without complications; N40.1 Benign prostatic hyperplasia with lower urinary tract symptoms; N13.8 Other obstructive and reflux uropathy; Z87.891 Personal history of nicotine dependence; Z79.82 Long term (current) use of aspirin
CPT/HCPCS: 28005; 28820; 88305; 88311; J0690; J2704; J3010; J3490; J7030

== ENCOUNTER → 2024-04-02 08:41 | Outpatient (BNVA) | payer MEDICARE, SELFPAY | PROVIDERS: PCP Family Medicine; Visit Provider Podiatrist Foot & Ankle Surgery | DX: Z98.890 Other specified postprocedural states (principal) | CPT/HCPCS: 99024 ==

== ENCOUNTER → 2024-04-08 09:28 | Outpatient (BNVA) | payer MEDICARE, SELFPAY | PROVIDERS: PCP Family Medicine; Visit Provider Podiatrist Foot & Ankle Surgery | DX: Z98.890 Other specified postprocedural states (principal) | CPT/HCPCS: 99024 ==

== ENCOUNTER → 2024-04-24 11:31 | Outpatient (BNVA) | payer MEDICARE, SELFPAY | PROVIDERS: PCP Family Medicine; Visit Provider Podiatrist Foot & Ankle Surgery | DX: S91.302A Unspecified open wound, left foot, initial encounter (principal); X58.XXXA Exposure to other specified factors, initial encounter | CPT/HCPCS: 29445; 87070; 87075; 87077; 87186; 87205 ==

== ENCOUNTER → 2024-05-03 14:28 | Outpatient (BNVA) | payer MEDICARE, SELFPAY | PROVIDERS: PCP Family Medicine; Visit Provider Podiatrist Foot & Ankle Surgery | DX: L97.513 Non-pressure chronic ulcer of other part of right foot with necrosis of muscle (principal) | CPT/HCPCS: 29445 ==

== ENCOUNTER → 2024-05-13 14:20 | Outpatient (BNVA) | payer MEDICARE, SELFPAY | PROVIDERS: PCP Family Medicine; Visit Provider Podiatrist Foot & Ankle Surgery | DX: L97.513 Non-pressure chronic ulcer of other part of right foot with necrosis of muscle (principal) | CPT/HCPCS: 99213 ==

== ENCOUNTER → 2024-05-20 13:13 | Outpatient (BNVA) | payer MEDICARE, SELFPAY | PROVIDERS: PCP Family Medicine; Visit Provider Podiatrist Foot & Ankle Surgery | DX: L97.513 Non-pressure chronic ulcer of other part of right foot with necrosis of muscle (principal) | CPT/HCPCS: 99213 ==

== ENCOUNTER → 2024-06-10 14:08 | Outpatient (BNVA) | payer MEDICARE, SELFPAY | PROVIDERS: PCP Family Medicine; Visit Provider Podiatrist Foot & Ankle Surgery | DX: L97.513 Non-pressure chronic ulcer of other part of right foot with necrosis of muscle (principal); G60.9 Hereditary and idiopathic neuropathy, unspecified | CPT/HCPCS: 99213 ==

== ENCOUNTER → 2024-07-15 11:30 | Outpatient (BNVA) | payer MEDICARE, SELFPAY | PROVIDERS: PCP Family Medicine; Visit Provider Podiatrist Foot & Ankle Surgery | DX: G60.9 Hereditary and idiopathic neuropathy, unspecified (principal) | CPT/HCPCS: 99213 ==

== ENCOUNTER → 2024-08-14 11:12 | Outpatient (BNVA) | payer MEDICARE, SELFPAY | PROVIDERS: PCP Family Medicine; Visit Provider Podiatrist Foot & Ankle Surgery | DX: L97.522 Non-pressure chronic ulcer of other part of left foot with fat layer exposed (principal); L97.524 Non-pressure chronic ulcer of other part of left foot with necrosis of bone; M20.42 Other hammer toe(s) (acquired), left foot; G60.9 Hereditary and idiopathic neuropathy, unspecified; M86.172 Other acute osteomyelitis, left ankle and foot | CPT/HCPCS: 11044; 28010; 28011; 73630; 87070; 87075; 87205 ==

== ENCOUNTER → 2024-08-19 08:27 | Outpatient (BNVA) | payer MEDICARE, SELFPAY | PROVIDERS: PCP Family Medicine; Visit Provider Podiatrist Foot & Ankle Surgery | DX: G60.9 Hereditary and idiopathic neuropathy, unspecified (principal); M20.42 Other hammer toe(s) (acquired), left foot; L97.524 Non-pressure chronic ulcer of other part of left foot with necrosis of bone; M86.172 Other acute osteomyelitis, left ankle and foot | CPT/HCPCS: 99213 ==

== ENCOUNTER → 2024-09-02 07:56 | Outpatient (BNVA) | payer MEDICARE, SELFPAY | PROVIDERS: PCP Family Medicine; Visit Provider Podiatrist Foot & Ankle Surgery | DX: G60.9 Hereditary and idiopathic neuropathy, unspecified (principal); L97.524 Non-pressure chronic ulcer of other part of left foot with necrosis of bone; M86.172 Other acute osteomyelitis, left ankle and foot; M20.41 Other hammer toe(s) (acquired), right foot; M20.42 Other hammer toe(s) (acquired), left foot | CPT/HCPCS: 99213 ==

== ENCOUNTER → 2024-12-16 07:49 | Outpatient (BNVA) | payer MEDICARE, SELFPAY | PROVIDERS: PCP Family Medicine; Visit Provider Podiatrist Foot & Ankle Surgery | DX: G60.9 Hereditary and idiopathic neuropathy, unspecified (principal); M20.41 Other hammer toe(s) (acquired), right foot; M20.42 Other hammer toe(s) (acquired), left foot | CPT/HCPCS: 99213 ==

== ENCOUNTER → 2025-03-25 08:12 | Outpatient (BNVA) | payer MEDICARE, SELFPAY | PROVIDERS: PCP Family Medicine; Visit Provider Podiatrist Foot & Ankle Surgery | DX: L60.8 Other nail disorders (principal); G60.9 Hereditary and idiopathic neuropathy, unspecified; Z89.422 Acquired absence of other left toe(s); Z89.412 Acquired absence of left great toe | CPT/HCPCS: 99213 ==

== ENCOUNTER → 2025-05-29 09:02 | Outpatient (BNVA) | payer MEDICARE, SELFPAY | PROVIDERS: PCP Family Medicine; Visit Provider Podiatrist Foot & Ankle Surgery | DX: M79.672 Pain in left foot (principal); L97.522 Non-pressure chronic ulcer of other part of left foot with fat layer exposed; G60.9 Hereditary and idiopathic neuropathy, unspecified; Z89.412 Acquired absence of left great toe; Z89.422 Acquired absence of other left toe(s); Z46.89 Encounter for fitting and adjustment of other specified devices | CPT/HCPCS: 73630 ==

== ENCOUNTER 2025-05-29 10:22 | Outpatient (CLI) | payer MEDICARE, SELFPAY | END 2025-05-29 10:23 | disposition home or self-care (01) | LOC: SPT 10:23 | PROVIDERS: PCP Family Medicine; Visit Provider Podiatrist Foot & Ankle Surgery | DX: Z46.89 Encounter for fitting and adjustment of other specified devices (principal); L97.522 Non-pressure chronic ulcer of other part of left foot with fat layer exposed | CPT/HCPCS: 97760; L4361 ==

== ENCOUNTER → 2025-06-05 14:41 | Outpatient (BNVA) | payer MEDICARE, SELFPAY | PROVIDERS: PCP Family Medicine; Visit Provider Podiatrist Foot & Ankle Surgery | DX: L97.522 Non-pressure chronic ulcer of other part of left foot with fat layer exposed (principal); Z89.412 Acquired absence of left great toe; Z89.422 Acquired absence of other left toe(s); G60.9 Hereditary and idiopathic neuropathy, unspecified | CPT/HCPCS: 99213 ==

== ENCOUNTER → 2025-06-10 14:48 | Outpatient (BNVA) | payer MEDICARE, SELFPAY | PROVIDERS: PCP Family Medicine; Visit Provider Podiatrist Foot & Ankle Surgery | DX: G60.9 Hereditary and idiopathic neuropathy, unspecified (principal); M20.41 Other hammer toe(s) (acquired), right foot; M20.42 Other hammer toe(s) (acquired), left foot; L97.522 Non-pressure chronic ulcer of other part of left foot with fat layer exposed | CPT/HCPCS: 99213 ==

== ENCOUNTER → 2025-06-16 11:50 | Outpatient (BNVA) | payer MEDICARE, SELFPAY | PROVIDERS: PCP Family Medicine; Visit Provider Podiatrist Foot & Ankle Surgery | DX: G60.9 Hereditary and idiopathic neuropathy, unspecified (principal); M20.41 Other hammer toe(s) (acquired), right foot; M20.42 Other hammer toe(s) (acquired), left foot; L97.522 Non-pressure chronic ulcer of other part of left foot with fat layer exposed | CPT/HCPCS: 11042 ==

== ENCOUNTER → 2025-06-23 07:13 | Outpatient (BNVA) | payer MEDICARE, SELFPAY | PROVIDERS: PCP Family Medicine; Visit Provider Podiatrist Foot & Ankle Surgery | DX: G60.9 Hereditary and idiopathic neuropathy, unspecified (principal); M20.41 Other hammer toe(s) (acquired), right foot; M20.42 Other hammer toe(s) (acquired), left foot; L97.522 Non-pressure chronic ulcer of other part of left foot with fat layer exposed | CPT/HCPCS: 99213 ==

== ENCOUNTER → 2025-07-08 09:06 | Outpatient (BNVA) | payer MEDICARE, SELFPAY | PROVIDERS: PCP Family Medicine; Visit Provider Podiatrist Foot & Ankle Surgery | DX: G60.9 Hereditary and idiopathic neuropathy, unspecified (principal); M20.41 Other hammer toe(s) (acquired), right foot; M20.42 Other hammer toe(s) (acquired), left foot; L97.522 Non-pressure chronic ulcer of other part of left foot with fat layer exposed | CPT/HCPCS: 99213 ==

== ENCOUNTER → 2025-08-25 09:35 | Outpatient (BNVA) | payer MEDICARE, SELFPAY | PROVIDERS: PCP Family Medicine; Visit Provider Podiatrist Foot & Ankle Surgery | DX: G60.9 Hereditary and idiopathic neuropathy, unspecified (principal); M20.41 Other hammer toe(s) (acquired), right foot; M20.42 Other hammer toe(s) (acquired), left foot | CPT/HCPCS: 99213 ==

== ENCOUNTER → 2025-09-22 11:28 | Outpatient (BNVA) | payer MEDICARE, SELFPAY | PROVIDERS: PCP Family Medicine; Visit Provider Podiatrist Foot & Ankle Surgery | DX: G60.9 Hereditary and idiopathic neuropathy, unspecified (principal); M20.41 Other hammer toe(s) (acquired), right foot; M20.42 Other hammer toe(s) (acquired), left foot | CPT/HCPCS: 99213 ==

== ENCOUNTER → 2025-09-25 10:40 | Outpatient (BNVA) | payer MEDICARE, SELFPAY | PROVIDERS: PCP Family Medicine; Visit Provider Emergency Medicine | DX: R05.9 Cough, unspecified (principal) | CPT/HCPCS: 87400; 87426 ==

== ENCOUNTER → 2025-10-20 10:45 | Outpatient (BNVA) | payer MEDICARE, SELFPAY | PROVIDERS: PCP Family Medicine; Visit Provider Podiatrist Foot & Ankle Surgery | DX: G60.9 Hereditary and idiopathic neuropathy, unspecified (principal); M20.41 Other hammer toe(s) (acquired), right foot; M20.42 Other hammer toe(s) (acquired), left foot | CPT/HCPCS: 99213 ==

== ENCOUNTER 2025-10-21 11:38 | Outpatient (CLI) | payer MEDICARE, SELFPAY ==
--- NOTE | 2025-10-21 11:43 | XRR_ITS ---
PROCEDURE INFORMATION: Exam: XR Chest Exam date and time: 10/21/2025 11:49 AM Age: 80 years old Clinical indication: Cough and wheezing; Additional info: Chest congestion/wheezing TECHNIQUE: Imaging protocol: Radiologic exam of the chest. Views: 2 views. COMPARISON: CR XR chest 2V* [id number] 05/22/2023 11:33 AM FINDINGS: Lungs: Clear lungs. Pleural spaces: No pneumothorax or pleural effusion. Heart/Mediastinum: Heart size is normal. Bones/joints: Unremarkable. XR/XR chest 2V* [id number] IMPRESSION: No acute findings.
== END 2025-10-21 11:39 | disposition home or self-care (01) ==
PROVIDERS: PCP Family Medicine; Visit Provider Nurse Practitioner
DX: R09.89 Other specified symptoms and signs involving the circulatory and respiratory systems (principal)
CPT/HCPCS: 71046